=== PATIENT | female | born 1975 | race Caucasian/White ===

== ENCOUNTER 2017-01-19 13:18 | Emergency (ER) | payer SELFPAY ==
--- NOTE | 2017-01-19 14:01 | ED Physician Documentation ---
PD HPI LOWER EXT INJURY - Stated complaint Stated Complaint: RT ANKLE INJURY - Chief complaint Chief Complaint: Ext Problem - History obtained from History obtained from: Patient - History of Present Illness PD HPI LOW EXT INJURY LOCATION: Right, Ankle Type of injury: Twist (she jumped from bed of a truck and landed hard, twisted as she did. Pain in lateral/back ankle.) Timing - onset: Today Timing - details: Abrupt onset, Still present Associated symptoms: Swelling. No: Weakness, Numbness Similar symptoms before: Has not had sx before Recently seen: Not recently seen Review of Systems Skin: denies: Abrasion (s), Laceration (s) Musculoskeletal: reports: Joint pain, Joint swelling Neurologic: denies: Focal weakness, Numbness PD PAST MEDICAL HISTORY - Past Medical History Past Medical History: No FASHION BUYER: Other - Past Surgical History Past Surgical History: Yes /FASHION BUYER: section - Present Medications Home Medications: Ambulatory Orders Medication Instructions Recorded Confirmed Ibuprofen [Motrin] 600 mg PO TID #30 tab 01/19/17 Tramadol HCl 50 mg PO Q6H PRN #20 tablet 01/19/17 - Allergies Allergies/Adverse Reactions: Allergies Allergy/AdvReac Type Severity Reaction Status Date / Time azithromycin Allergy Rash Verified 01/19/17 13:25 - Social History Does the pt smoke?: No Smoking Status: Never smoker Does the pt drink ETOH?: Yes Does the pt have substance abuse?: No - Immunizations Immunizations are current?: Yes PD ED PE NORMAL - Vitals Vital signs reviewed: Yes - General General: Alert and oriented X 3, Well developed/nourished - Back Back: No spinal TTP - Derm Derm: Normal color, Warm and dry - Extremities Extremities: Other (ankle tender laterally. Achilles and heel themselves are not tender. ) - Neuro Neuro: Alert and oriented X 3, No motor deficit, Normal speech Results - Rads (name of study) ankle Radiology: Prelim report reviewed (no fracture) PD MEDICAL DECISION MAKING - ED course Complexity details: reviewed results, considered differential, d/w patient Departure - Departure Disposition: 01 Home, Self Care Condition: Stable Record reviewed to determine appropriate education?: Yes Instructions: ED Sprain Ankle Prescriptions: Ibuprofen [Motrin] 600 mg PO TID #30 tab Tramadol HCl 50 mg PO Q6H PRN #20 tablet PRN Reason: Pain Comments: Kris wrap for swelling, and ice/elevate often. Ankle brace to support ligaments when walking for time of healing, likely 3-4 weeks. Crutches initially for the pain of it, and progress weight bearing as able. Likely will be able to walk on it reasonably in 7-10 days, perhaps sooner. Iburpofen 3 times daily, add tylenol or tramadol as needed. Follow up with PMD when back home if not better over 3-4 weeks. Forms: Activity restrictions Discharge Date/Time: 01/19/17 14:58
--- NOTE | 2017-01-19 14:04 | XRAY Preliminary Report ---
Exam: XR Ankle 3 View RT IMPRESSION: Displaced flake fracture tip of the lateral malleolus. [facility] SITE ID: [id number]
--- NOTE | 2017-01-19 14:15 | XRAY Report ---
EXAM: RIGHT ANKLE RADIOGRAPHY EXAM DATE: 01/19/2017 01:51 PM. CLINICAL HISTORY: Rolled ankle getting out of truck. COMPARISON: None. TECHNIQUE: 3 views. FINDINGS: Bones: Faint 1 x 5 mm avulsion fracture off the tip of the lateral malleolus, displaced inferiorly by 5 mm. Joints: Normal. No effusion. No subluxations. The ankle mortise is normally aligned. Soft Tissues: Marked edema over and inferior to the lateral malleolus. IMPRESSION: Displaced flake fracture tip of the lateral malleolus. [facility] Referring Provider Line: [phone] SITE ID: [id number]
[2017-01-19] MEDS ORDERED: IBUPROFEN 600 MG TABLET PO STA (14:29)
[2017-01-19] MEDS ORDERED: ACETAMINOPHEN 325 MG TABLET PO STA (14:30)
[2017-01-19] MEDS ORDERED: IBUPROFEN 600 MG TABLET PO ONE (14:45)
[2017-01-19] MEDS ORDERED: ACETAMINOPHEN 325 MG TABLET PO ONE (14:45)
[2017-01-19 14:59] VITALS: BP 119/80
== END 2017-01-19 14:58 | disposition home or self-care (01) ==
LOC: ED 13:18
DX: S93.401A Sprain of unspecified ligament of right ankle, initial encounter (principal); X50.1XXA Overexertion from prolonged static or awkward postures, initial encounter; Y93.39 Activity, other involving climbing, rappelling and jumping off
CPT/HCPCS: 73610; 99283; A9270